=== PATIENT | male | born 2000 | race Caucasian/White ===

== ENCOUNTER 2025-03-07 14:16 | Emergency (ER) | payer OTHER ==
[~2025-03-07] VITALS: Ht 180.3 cm; Wt 81.7 kg
[2025-03-07] MEDS ORDERED: Ketorolac Tromethamine 15mg Vial IM ONE (16:55)
== END 2025-03-07 17:45 | disposition home or self-care (01) ==
LOC: ER 14:16
DX: M76.62 Achilles tendinitis, left leg (principal)
CPT/HCPCS: J1885

== ENCOUNTER 2025-05-23 10:42 | Emergency (ER) | payer OTHER ==
[~2025-05-23] VITALS: Ht 180.3 cm; Wt 81.7 kg
== END 2025-05-23 15:46 | disposition home or self-care (01) ==
LOC: ER 10:42
DX: M79.18 Myalgia, other site (principal); Z59.89 Other problems related to housing and economic circumstances
CPT/HCPCS: 93971; 99284-25